=== PATIENT | female | born 1965 | race Caucasian/White ===

== ENCOUNTER 2016-07-14 15:33 | Inpatient (IN) | payer OTHER ==
[~2016-07-14] VITALS: Ht 160 cm; Wt 92.2 kg
[~2016-07-14 15:33] MED LIST: CHOL50006 PO; CITA20TA4 PO; LEVO150T7 PO; PANT40TA3 PO
[2016-07-15] MEDS ORDERED: APREPITANT 40 MG CAP PO SCH (06:00)
[2016-07-15] MEDS ORDERED: METOPROLOL TARTRATE 25 MG TAB PO PRN (06:00)
[2016-07-15] MEDS ORDERED: SODIUM CHLORID 0.9% 500 ML IV SCH (06:00)
[2016-07-15] MEDS ORDERED: ceFAZolin 2 GM PREMIX 50 ML IV SCH (06:00)
[2016-07-15] MEDS ORDERED: LACTATED RINGER'S 1000 ML IV SCH (06:00)
[2016-07-15] MEDS ORDERED: metroNIDAZOLE 500 MG INJ 100 ML IV SCH (06:00)
[2016-07-15] MEDS ORDERED: ACETAMINOPHEN 1000 MG/100 ML VIAL IV SCH (06:00)
[2016-07-15] MEDS ORDERED: INSULIN HUMAN REGULAR 1,000 UNITS/10 ML VIAL SQ PRN (06:00)
[2016-07-15] MEDS ORDERED: ONDANSETRON HCL 4 MG/2 ML VIAL IV PUSH SCH (06:00)
[2016-07-15 06:16] VITALS: BP 122/81; PULSE 76; RESP 16; TEMP 99.6; O2SAT 98
[2016-07-15] MEDS ORDERED: BUPIVACAINE/EPINEPHRINE 0.5% 50 ML VIAL ONE (06:26)
[2016-07-15] MEDS ORDERED: METHYLENE BLUE 10 MG/ML VIAL ONE (06:26)
[2016-07-15] MEDS ORDERED: MIDAZOLAM HCL 5 MG/5 ML VIAL ONE (08:16)
[2016-07-15] MEDS ORDERED: PROPOFOL 200 MG/20 ML AMP IV ONE (09:22)
[2016-07-15] MEDS ORDERED: LACTATED RINGER'S 1000 ML INJ 1,000 ML IV ONE (09:22)
[2016-07-15] MEDS ORDERED: ePHEDrine/NS 50 MG/5 ML SYR IV ONE (09:22)
[2016-07-15] MEDS ORDERED: ONDANSETRON HCL 4 MG/2 ML VIAL IV PUSH ONE (09:22)
[2016-07-15] MEDS ORDERED: DO NOT ADM ANY ANTICOAGULANT DRUGS XX PRN (10:12)
[2016-07-15] MEDS ORDERED: SODIUM CHLORIDE 0.9% FLUSH 5 ML FLUSH IVF PRN (10:15)
[2016-07-15] MEDS ORDERED: Post-op Orders (for Pharmacy) MISC XX ONE (10:15)
[2016-07-15] MEDS ORDERED: diphenhydrAMINE HCL 50 MG/ML VIAL IV PRN (10:15)
[2016-07-15] MEDS ORDERED: ENALAPRILAT 1.25 MG/ML VIAL IV PUSH PRN (10:15)
[2016-07-15] MEDS ORDERED: ONDANSETRON HCL 4 MG/2 ML VIAL IV PRN (10:15)
[2016-07-15] MEDS ORDERED: NALOXONE HCL 0.4 MG/ML AMP IV PRN (10:15)
[2016-07-15] MEDS ORDERED: diphenhydrAMINE HCL ELIXIR 12.5 MG/5 ML CUP PO PRN (10:15)
[2016-07-15] MEDS ORDERED: fentaNYL CITRATE 250 MCG/5 ML AMP ONE ×2 (10:22)
[2016-07-15] MEDS ORDERED: *morphine SULFATE 8 MG/ML PERIprocedure ONLY ONE ×3 (10:25→11:06)
[2016-07-15] MEDS ORDERED: *ONDANSETRON 4 MG VIAL PERIprocedural Use ONLY ONE (10:26)
[2016-07-15] MEDS ORDERED: MORPHINE SULFATE 30 MG/30 ML PCA IV SCH (11:00)
[2016-07-15] MEDS: D5-1/2 NS + KCL 20 MEQ INJ 1,000 ML IV SCH ×3 (11:00→20:47)
[2016-07-15] MEDS: METOCLOPRAMIDE HCL 10 MG/2 ML VIAL IVS SCH ×3 (11:00→22:09)
[2016-07-15] MEDS ORDERED: *HYDROmorphone PF 1 MG VIAL PERIprocedural Use ONLY ONE (11:23)
[2016-07-15] MEDS: RESP: ALBUTEROL 2.5 MG/3 ML NEB (SCH) INH (12:00)
[2016-07-15] MEDS ORDERED: NEOSTIGMINE 3 MG/3 ML SYR IV ONE (12:00)
[2016-07-15] MEDS ORDERED: *diphenhydrAMINE HCL 50 MG/ML VIAL PERIprocedural Use ONLY ONE (12:36)
[2016-07-15] MEDS: ENOXAPARIN SODIUM 40 MG/0.4 ML SYRINGE SQ SCH (13:52)
[2016-07-15] MEDS: metroNIDAZOLE 500 MG INJ 100 ML IV SCH ×2 (13:53→22:10)
[2016-07-15] MEDS: PCA - TOTAL MG MORPHINE DELIVERED PER SHIFT SCH ×2 (13:53→20:47)
[2016-07-15] MEDS: ONDANSETRON HCL 4 MG/2 ML VIAL IV PRN ×2 (17:31→23:46)
[2016-07-15] MEDS: METOCLOPRAMIDE HCL 10 MG/2 ML VIAL IVS PRN (18:21)
[2016-07-15 20:00] VITALS: BP 110/61; PULSE 77; RESP 18; TEMP 97.1; O2SAT 95
[2016-07-15] MEDS: SODIUM CHLORIDE 0.9% FLUSH 5 ML FLUSH IVF SCH (20:47)
[2016-07-15] MEDS: ACETAMINOPHEN 1000 MG/100 ML VIAL IV PRN (23:47)
[2016-07-16] VITALS (7 sets, daily range): BP systolic 90–136; BP diastolic 57–79; PULSE 60–88; RESP 17–20; TEMP 96.4–98.7; O2SAT 96–98
[2016-07-16] MEDS: RESP: ALBUTEROL 2.5 MG/3 ML NEB (SCH) INH ×8 (01:03→23:30)
[2016-07-16] MEDS: METOCLOPRAMIDE HCL 10 MG/2 ML VIAL IVS SCH (05:23)
[2016-07-16] MEDS: D5-1/2 NS + KCL 20 MEQ INJ 1,000 ML IV SCH ×4 (05:23→18:36)
[2016-07-16 05:24] LABS: AUTOMATED NEUTROPHIL # 7.6 TH/MM3 (1.8-7.7); BASOPHIL % 0.2 % (0.0-2.0); EOSINOPHIL % 0.2 % (0.0-4.0); HEMO FLAGS DIFF FINAL; LYMPH % 10.4 % (9.0-44.0); LYMPHOCYTE # 0.9 TH/MM3 (1.0-4.8); MEAN CELL VOLUME 85.3 FL (80.0-100.0); MEAN CORPUSCULAR HEMOGLOBIN 28.9 PG (27.0-34.0); MEAN CORPUSCULAR HGB CONC 33.9 % (32.0-36.0); MONO % 5.9 % (0.0-8.0); NEUT % 83.3 % (16.0-70.0); PLATELET COUNT 157 TH/MM3 (150-450); RED BLOOD COUNT 4.22 MIL/MM3 (4.00-5.30); RED CELL DISTRIBUTION WIDTH 13.5 % (11.6-17.2); WHITE BLOOD COUNT 9.1 TH/MM3 (4.0-11.0)
[2016-07-16] MEDS: metroNIDAZOLE 500 MG INJ 100 ML IV SCH (05:24)
[2016-07-16] MEDS: PCA - TOTAL MG MORPHINE DELIVERED PER SHIFT SCH (05:24)
[2016-07-16 05:53] LABS: BICARBONATE 27.2 MEQ/L (21.0-32.0); MAGNESIUM 2.1 MG/DL (1.5-2.5); POTASSIUM 4.2 MEQ/L (3.5-5.1)
[2016-07-16] MEDS: ONDANSETRON HCL 4 MG/2 ML VIAL IV PRN ×3 (06:15→22:34)
[2016-07-16] MEDS: ACETAMINOPHEN 1000 MG/100 ML VIAL IV PRN (06:15)
[2016-07-16] MEDS ORDERED: PANTOPRAZOLE SODIUM 40 MG VIAL IVP SCH (09:00)
[2016-07-16] MEDS: PANTOPRAZOLE SOD 40 MG DELAYED RELEASE TAB PO SCH (09:00)
[2016-07-16] MEDS: SODIUM CHLORIDE 0.9% FLUSH 5 ML FLUSH IVF SCH ×2 (09:19→19:54)
[2016-07-16] MEDS: METOCLOPRAMIDE HCL 10 MG/2 ML VIAL IVS PRN (09:21)
--- NOTE | 2016-07-16 09:46 | HHI.PR ---
Subjective Subjective Notes pt c/o headache nausea controlled with meds Objective Vitals/I&O Vital Signs Date Time Temp Pulse Resp B/P Pulse Ox O2 Delivery O2 Flow Rate FiO2 07/16/16 08:00 96.7 72 17 90/58 97 07/16/16 07:29 Nasal Cannula 2.50 Labs Laboratory Tests Test 07/16/16 04:48 White Blood Count 9.1 Red Blood Count 4.22 Hemoglobin 12.2 Hematocrit 36.0 Mean Corpuscular Volume 85.3 Mean Corpuscular Hemoglobin 28.9 Mean Corpuscular Hemoglobin 33.9 Concent Red Cell Distribution Width 13.5 Platelet Count 157 Mean Platelet Volume 7.8 Neutrophils (%) (Auto) 83.3 Lymphocytes (%) (Auto) 10.4 Monocytes (%) (Auto) 5.9 Eosinophils (%) (Auto) 0.2 Basophils (%) (Auto) 0.2 Neutrophils # (Auto) 7.6 Lymphocytes # (Auto) 0.9 Monocytes # (Auto) 0.5 Eosinophils # (Auto) 0.0 Basophils # (Auto) 0.0 CBC Comment DIFF FINAL Differential Comment Sodium Level 139 Potassium Level 4.2 Chloride Level 106 Carbon Dioxide Level 27.2 Anion Gap 6 Blood Urea Nitrogen 9 Creatinine 0.89 Estimat Glomerular Filtration 67 Rate Random Glucose 167 Calcium Level 7.5 Magnesium Level 2.1 Abdomen: Post-op tenderness Extremities: No edema Wound Wound : Wound Location: Abdomen Appearance: Clean & Dry A/P Assessment and Plan pt POD # 1 S/P [id number] normal post op changes possible d/c home later today Mike Matson MD Jul 16, 2016 09:46
[2016-07-16] MEDS ORDERED: PNEUMOCOCCAL POLYVALENT INJ 25 MCG/0.5 ML SYR IM ONE (10:00)
[2016-07-16] MEDS: ENOXAPARIN SODIUM 40 MG/0.4 ML SYRINGE SQ SCH (15:22)
[2016-07-16] MEDS: HYDROmorphone HCL 2 MG TAB PO PRN (21:19)
[2016-07-17] VITALS: BP 127/69; PULSE 76; RESP 20; TEMP 98.5; O2SAT 95
[2016-07-17] MEDS: D5-1/2 NS + KCL 20 MEQ INJ 1,000 ML IV SCH ×2 (01:12→01:13)
[2016-07-17] MEDS: HYDROmorphone HCL 2 MG TAB PO PRN ×3 (01:12→10:48)
[2016-07-17] MEDS: RESP: ALBUTEROL 2.5 MG/3 ML NEB (SCH) INH ×2 (03:18→08:55)
[2016-07-17 08:00] VITALS: BP 142/83; PULSE 90; RESP 18; TEMP 98.5; O2SAT 93
[2016-07-17 08:55] VITALS: O2SAT 96
[2016-07-17] MEDS: PANTOPRAZOLE SOD 40 MG DELAYED RELEASE TAB PO SCH (09:27)
[2016-07-17 12:00] VITALS: BP 104/67; PULSE 70; RESP 14; O2SAT 96
--- NOTE | 2016-07-24 12:39 | MP ---
cc: TRUONG MATSON DATE OF SURGERY: 07/15/2016 PREOPERATIVE DIAGNOSIS: Morbid obesity with BMI of 35 complicated by gastroesophageal reflux disease unresponsive to medical management. POSTOPERATIVE DIAGNOSIS: Morbid obesity with BMI of 35 complicated by gastroesophageal reflux disease unresponsive to medical management. OPERATIVE PROCEDURE PERFORMED: Laparoscopic gastrojejunostomy 100 Sheba limb antegastric antecolic. SURGEON: Truong Matson MD. ANESTHESIA: General endotracheal anesthesia. ESTIMATED BLOOD LOSS: Scant FINDINGS: Fatty liver SPECIMENS: None COMPLICATIONS None. DESCRIPTION OF THE PROCEDURE IN DETAIL: The patient was brought to the operating room and placed on the operating table in supine position, bilateral sequential inflation device placed on lower extremities, general anesthesia instituted, antibiotics initiated. The abdomen was prepped and draped sterilely. A poin 18-cm distal to the xiphoid in the midline anesthetized with 0.25% Marcaine with epinephrine. The skin incision was made, a 5-mm OptiView port placed under direct vision and pneumoperitoneum was created. Under direct vision a 5-mm left upper quadrant, 12-mm left upper quadrant, 12-mm right upper quadrant and 5-mm right upper quadrant ports were placed. Prior to placement of all ports, the skin and peritoneum were anesthetized with 0.25% Marcaine with epinephrine. The patient's omentum was lifted into the upper abdomen. It was split down the middle to create a path for the Sheba limb. The ligament of Treitz was identified, a point 40 cm distal identified. The small bowel was divided in this region using an Snowflake Flex stapler vascular load reinforced with SeamGuard. The distal segment was brought up for a distance of 100 cm, enterotomy created in this region, enterotomy in the biliopancreatic limb and a [id number] stapled jejunojejunostomy created in the usual manner. The mesenteric defect at the jejunojejunostomy was closed with 2-0 Surgidac suture in a running manner. The patient was placed in reverse Trendelenburg position with the left side up. The Belkys-Flex retractor was placed. The left lobe of the liver was retracted. The angle of His was taken down bluntly, a point 5 cm distal to the GE junction along the lesser curve identified, the lesser sac entered using blunt dissection. The stomach was partitioned horizontally using an Snowflake-Flex stapler blue load, an additional firing taken directed towards the angle of His to completely divide the stomach. A gastrotomy created in the new stomach, enterotomy in the Sheba limb and gastrojejunostomy created, stomal opening of 2 cm. An 18-Mongolian OG tube was placed across the anastomosis, the defect then closed in two layers of running 2-0 Vicryl. Prior to placement of the second layer, methylene blue instilled through the OG tube. There was no evidence of extravasation. Evicel was then placed over the gastrojejunostomy, jejunojejunostomy and all staple lines. The operative field inspected and hemostasis was present. The CO2 was released, all ports were removed. All skin incisions were closed with 4-0 Monocryl. The abdominal wall was cleaned and a sterile dressing placed. The patient was awakened and taken to the recovery room. MD KD Olivera/OMARI /7:55 AM /12:35 PM
== END 2016-07-17 14:37 | disposition home or self-care (01) | DRG 621 ==
LOC: HSDI 07-15 05:34 → N07A 07-15 13:47
PROVIDERS: ADMIT Surgery; ATTEND Surgery
PROC: 0D164ZA Bypass Stomach to Jejunum, Percutaneous Endoscopic Approach (ICD-10-PCS; principal; 2016-07-15 08:29)
DX: E66.01 Morbid (severe) obesity due to excess calories (principal); Z68.35 Body mass index [BMI] 35.0-35.9, adult; K21.9 Gastro-esophageal reflux disease without esophagitis; K76.0 Fatty (change of) liver, not elsewhere classified; R11.0 Nausea
CPT/HCPCS: 80048; 83735; 85025; 94150; 94664; C9113; J0131; J0690; J1170; J1200; J1650; J2250; J2270; J2405; J2710; J2765; J3010; J3480; J7120; J7613; J8501